=== PATIENT | male | born 1930 | race African-American/Black ===

== ENCOUNTER 2018-08-25 11:53 | Inpatient (IN) | payer MEDICARE, OTHER ==
[~2018-08-25] VITALS: Ht 188 cm; Wt 72.6 kg
[2018-08-25] MEDS ORDERED: SODIUM CHLORIDE 0.9% 1000ML BAG (SEPSIS BOLUS) IV ONE (12:15)
[2018-08-25] MEDS ORDERED: LEVOFLOXACIN 750MG PREMIX 150 ML IV ONE (12:30)
[2018-08-25 13:02] LABS: BASOPHILS % 0.7 % (0.0-2.0); EOSINOPHILS % 0.8 % (0.0-5.0); HEMATOCRIT. 46.5 % (42.0-52.0); HEMOGLOBIN. 15.6 g/dL (14.0-18.0); LYMPHOCYTES % 42.4 % (20.0-50.0); MEAN CORPUSCULAR HEMOGLOBIN 32.9 pg (28.0-32.0); MEAN CORPUSCULAR VOLUME 98.2 fL (80.0-94.0); MEAN PLATELET VOLUME 9.2 fl (7.4-10.4); MONOCYTES % 10.5 % (2.0-8.0); NEUTROPHILS % 45.6 % (40.0-76.0); PLATELET 150 x1000/uL (130-400); RED BLOOD CELL COUNT 4.74 mill/uL (4.7-6.1); RED CELL DISTRIBUTION WIDTH 14.9 % (11.6-14.6)
[2018-08-25 13:10] LABS: CHLORIDE 112 mEq/L (98-107); INR 1.6; PARTIAL THROMBOPLASTIN TIME 32.6 sec (23.4-31.0)
[2018-08-25] MEDS ORDERED: ASPIRIN 325MG EC TABLET PO ONE (14:30)
[2018-08-25 14:54] LABS: CLARITY URINE CLEAR (CLEAR); COLOR URINE YELLOW (YELLOW); KETONES URINE NEGATIVE (NEGATIVE); LEUKOCYTE ESTERASE URINE NEGATIVE (NEGATIVE); NITRITE URINE NEGATIVE (NEGATIVE); OCCULT BLOOD URINE NEGATIVE (NEGATIVE); PH URINE 5.5 (4.5-8.0); PROTEIN URINE NEGATIVE (NEGATIVE); SPECIFIC GRAVITY URINE 1.007 (1.005-1.030); UROBILINOGEN URINE 0.2 E.U./dL (0.2-1.0)
[2018-08-25] MEDS ORDERED: NA PHOS,M-B/NA PHOS,DI-BA ENEMA 118ML PR PRN (16:30)
[2018-08-25] MEDS ORDERED: GUAIFENESIN 200MG/10ML SUGAR FREE UDC PO PRN (16:30)
[2018-08-25] MEDS ORDERED: HYDROCODONE/ACETAMINOPHEN 5/325MG TABLET PO PRN (16:30)
[2018-08-25] MEDS ORDERED: ACETAMINOPHEN 650MG SUPP PR PRN (16:30)
[2018-08-25] MEDS ORDERED: DOCUSATE SODIUM 100MG CAPSULE PO PRN (16:30)
[2018-08-25] MEDS ORDERED: DEXTROSE 50% WATER 50ML SYRINGE IV PRN (16:30)
[2018-08-25] MEDS ORDERED: IPRATROPIUM/ALBUTEROL 0.5-3(2.5)MG/3ML NEB INH PRN (16:30)
[2018-08-25] MEDS ORDERED: LORAZEPAM 0.5MG TABLET PO PRN (16:30)
[2018-08-25] MEDS ORDERED: MAGNESIUM/ALUMINUM HYDROXIDE/SIMETHICONE 30ML UDC PO PRN (16:30)
[2018-08-25] MEDS ORDERED: ACETAMINOPHEN 325MG TABLET PO PRN (16:30)
[2018-08-25] MEDS ORDERED: ONDANSETRON HCL 4MG/2ML INJ IV PRN (16:30)
[2018-08-25] MEDS ORDERED: CLONIDINE 0.1MG TABLET PO PRN (16:30)
[2018-08-25] MEDS: BLOOD SUGAR DIAGNOSTIC STRIP TEST SCH ×2 (17:00→21:00)
[2018-08-25 17:50] VITALS: BP 147/85
[2018-08-25 18:29] LABS: *AMPHETAMINES SCREEN URINE NEGATIVE (NEGATIVE); *BARBITURATES SCREEN URINE NEGATIVE (NEGATIVE); *BENZODIAZEPINES SCREEN URINE NEGATIVE (NEGATIVE); *COCAINE SCREEN URINE NEGATIVE (NEGATIVE)
[2018-08-25 18:30] LABS: CANNABINOID URINE SCREEN NEGATIVE (NEGATIVE); METHADONE URINE SCREEN NEGATIVE (NEGATIVE); OPIATES URINE SCREEN NEGATIVE (NEGATIVE); PHENCYCLIDINE URINE SCREEN NEGATIVE (NEGATIVE)
[2018-08-25 20:00] VITALS: BP 124/67
[2018-08-25] MEDS: DIPHENHYDRAMINE 50MG/ML VIAL IV PRN (23:42)
[2018-08-25 23:56] VITALS: BP 124/67
[2018-08-26] VITALS: BP 157/92
[2018-08-26] MEDS ORDERED: RIVA10TA PO (00:26)
[2018-08-26] MEDS ORDERED: DILT60TA35 PO (00:26)
[2018-08-26] MEDS ORDERED: ASCO125T PO (00:26)
[2018-08-26] MEDS ORDERED: ZET10 PO (00:26)
[2018-08-26] MEDS ORDERED: ATOR40TA70 PO (00:26)
[2018-08-26] MEDS ORDERED: VIT1TABL86 PO (00:26)
[2018-08-26] MEDS ORDERED: MEMA10TA2 PO (00:26)
[2018-08-26] MEDS: ENOXAPARIN 40MG/0.4ML SYR SUBCUT SCH ×2 (00:58→08:56)
[2018-08-26 04:00] VITALS: BP 161/74
[2018-08-26 06:08] LABS: BASOPHILS % 0.4 % (0.0-2.0); EOSINOPHILS % 0.2 % (0.0-5.0); HEMATOCRIT. 41.6 % (42.0-52.0); HEMOGLOBIN. 14.1 g/dL (14.0-18.0); LYMPHOCYTES % 22.5 % (20.0-50.0); MEAN CORPUSCULAR HEMOGLOBIN 32.7 pg (28.0-32.0); MEAN CORPUSCULAR VOLUME 96.6 fL (80.0-94.0); MEAN PLATELET VOLUME 9.8 fl (7.4-10.4); NEUTROPHILS % 66.9 % (40.0-76.0); PLATELET 171 x1000/uL (130-400); RED BLOOD CELL COUNT 4.31 mill/uL (4.7-6.1); RED CELL DISTRIBUTION WIDTH 14.8 % (11.6-14.6)
[2018-08-26 06:33] LABS: CHLORIDE 110 mEq/L (98-107)
[2018-08-26 06:41] LABS: LDL CHOLESTEROL 38 mg/dL (5-100)
[2018-08-26 06:42] LABS: CREATINE KINASE 147 IU/L (39-308); HDL CHOLESTEROL 76 mg/dL (40-59); T4 FREE 1.27 ng/dL (0.76-1.46)
[2018-08-26 06:43] LABS: CREATINE KINASE MB FRACTION 1.9 ng/mL (0.5-3.6)
[2018-08-26] MEDS: BLOOD SUGAR DIAGNOSTIC STRIP TEST SCH ×4 (07:40→21:47)
[2018-08-26 08:00] VITALS: BP 141/83
[2018-08-26] MEDS: ASPIRIN 81MG EC TABLET PO SCH ×2 (08:54→08:55)
[2018-08-26 12:00] VITALS: BP 138/79
[2018-08-26] MEDS ORDERED: DILTIAZEM HCL 30MG TABLET PO SCH (14:00)
[2018-08-26] MEDS: ASCORBIC ACID 500 MG TABLET PO SCH (14:28)
[2018-08-26 16:00] VITALS: BP_SYST 120; BP_SYST 124; BP_SYST 130; BP_DIAS 69; BP_DIAS 70; BP_DIAS 84
[2018-08-26] MEDS ORDERED: MEMANTINE HCL 10MG TABLET PO SCH (17:00)
[2018-08-26 20:00] VITALS: BP_SYST 115; BP_SYST 120; BP_SYST 123; BP_DIAS 68; BP_DIAS 69; BP_DIAS 72
[2018-08-26] MEDS ORDERED: ENOXAPARIN 80MG/0.8ML SYR SUBCUT SCH (21:00)
[2018-08-26] MEDS: RIVAROXABAN 15 MG TABLET PO SCH (21:46)
[2018-08-26] MEDS: ATORVASTATIN CALCIUM 40MG TABLET PO SCH (21:46)
[2018-08-26] MEDS: METOPROLOL TARTRATE 25MG TABLET PO SCH (21:46)
[2018-08-27] VITALS: BP 105/70
[2018-08-27 04:00] VITALS: BP 153/75
[2018-08-27] MEDS: DIPHENHYDRAMINE 50MG/ML VIAL IV PRN (04:34)
[2018-08-27 08:00] VITALS: BP 143/88
[2018-08-27] MEDS: BLOOD SUGAR DIAGNOSTIC STRIP TEST SCH ×4 (08:13→20:32)
[2018-08-27] MEDS ORDERED: B6 PO SCH (09:00)
[2018-08-27] MEDS ORDERED: MEDICATION NOT ON FORMULARY EA (Ascorbic Acid (Vitamin C) 500 MG) PO SCH (09:00)
[2018-08-27] MEDS ORDERED: B2 PO SCH (09:00)
[2018-08-27] MEDS ORDERED: VIT D3 PO SCH (09:00)
[2018-08-27] MEDS ORDERED: ENOXAPARIN 40MG/0.4ML SYR SUBCUT SCH (09:00)
[2018-08-27] MEDS ORDERED: B12 PO SCH (09:00)
[2018-08-27] MEDS ORDERED: FOLIC ACID PO SCH (09:00)
[2018-08-27] MEDS: ASCORBIC ACID 500 MG TABLET PO SCH (09:35)
[2018-08-27] MEDS: EZETIMIBE 10MG TABLET PO SCH (09:36)
[2018-08-27] MEDS: ASPIRIN 81MG EC TABLET PO SCH (09:36)
[2018-08-27] MEDS: METOPROLOL TARTRATE 25MG TABLET PO SCH (09:37)
[2018-08-27] MEDS ORDERED: MEMANTINE HCL 5MG TABLET PO SCH (10:00)
[2018-08-27] MEDS: CYANOCOBALAMIN/FA/PYRIDOXINE TABLET PO SCH (11:33)
[2018-08-27 12:00] VITALS: BP_SYST 124; BP_SYST 128; BP_SYST 132; BP_SYST 134; BP_DIAS 68; BP_DIAS 73; BP_DIAS 78; BP_DIAS 79
[2018-08-27 12:34] LABS: HEMATOCRIT 44.1 % (42.0-52.0); HEMOGLOBIN 14.9 g/dL (14.0-18.0); MEAN CORPUSCULAR HEMOGLOBIN 32.8 pg (28.0-32.0); MEAN CORPUSCULAR VOLUME 96.7 fL (80.0-94.0); PLATELET 156 x1000/uL (130-400); RED BLOOD CELL COUNT 4.55 mill/uL (4.7-6.1)
[2018-08-27 12:42] LABS: CHLORIDE 107 mEq/L (98-107)
[2018-08-27 16:00] VITALS: BP 120/82
[2018-08-27] MEDS ORDERED: REGADENOSON 0.4 MG/5 ML IV ONE (16:00)
[2018-08-27] MEDS ORDERED: INSU100I19 SQ (19:27)
[2018-08-27] MEDS ORDERED: ASCO-339 PO (19:32)
[2018-08-27] MEDS ORDERED: DILT180C51 PO (19:32)
[2018-08-27] MEDS ORDERED: CHOL100022 PO (19:32)
[2018-08-27 20:00] VITALS: BP_SYST 129; BP_SYST 145; BP_SYST 146; BP_DIAS 101; BP_DIAS 67; BP_DIAS 82
[2018-08-27] MEDS: ATORVASTATIN CALCIUM 40MG TABLET PO SCH (20:28)
[2018-08-27] MEDS: RIVAROXABAN 15 MG TABLET PO SCH (20:29)
[2018-08-27 22:19] LABS: PLATELET 153 x1000/uL (130-400); RED BLOOD CELL COUNT 4.53 mill/uL (4.7-6.1); RED CELL DISTRIBUTION WIDTH 14.9 % (11.6-14.6)
[2018-08-27 22:23] LABS: CHLORIDE 104 mEq/L (98-107)
[2018-08-27 22:28] LABS: PHOSPHORUS 3.2 mg/dL (2.5-4.9)
[2018-08-27 22:31] LABS: CREATINE KINASE 226 IU/L (39-308)
[2018-08-27 22:34] LABS: CREATINE KINASE MB FRACTION 1.8 ng/mL (0.5-3.6)
[2018-08-28] MEDS ORDERED: DEXT 5%/0.45% NACL 1000ML 1,000 ML IV SCH
[2018-08-28 00:42] VITALS: BP 134/56
[2018-08-28 04:00] VITALS: BP 144/64
[2018-08-28] MEDS: BLOOD SUGAR DIAGNOSTIC STRIP TEST SCH ×2 (06:42→13:05)
[2018-08-28 06:46] LABS: HEMOGLOBIN 14.5 g/dL (14.0-18.0); MEAN CORPUSCULAR HEMOGLOBIN 33.2 pg (28.0-32.0); MEAN CORPUSCULAR VOLUME 95.9 fL (80.0-94.0); PLATELET 151 x1000/uL (130-400); RED BLOOD CELL COUNT 4.37 mill/uL (4.7-6.1); RED CELL DISTRIBUTION WIDTH 14.5 % (11.6-14.6)
[2018-08-28 07:17] LABS: CHLORIDE 106 mEq/L (98-107)
[2018-08-28 07:35] LABS: VITAMIN B12 SERUM 849 pg/mL (211-911)
[2018-08-28 08:00] VITALS: BP 132/92
[2018-08-28] MEDS: ASPIRIN 81MG EC TABLET PO SCH (09:00)
[2018-08-28] MEDS: ASCORBIC ACID 500 MG TABLET PO SCH (09:00)
[2018-08-28] MEDS: CYANOCOBALAMIN/FA/PYRIDOXINE TABLET PO SCH (09:00)
[2018-08-28] MEDS: EZETIMIBE 10MG TABLET PO SCH (09:00)
[2018-08-28] MEDS ORDERED: REGADENOSON 0.4 MG/5 ML IV ONE (09:49)
[2018-08-28 12:00] VITALS: BP 143/75
[2018-08-28 12:27] VITALS: BP 143/75
== END 2018-08-28 14:00 | disposition home or self-care (01) | DRG 73 ==
LOC: ER 12:17 → EDBEDREQ 13:41 → 7WST 14:25 → EDBEDREQ 14:29 → ENRESERV 16:30
PROVIDERS: ADMIT Internal Medicine; ATTEND Internal Medicine
DX: G90.8 Other disorders of autonomic nervous system (principal); I50.33 Acute on chronic diastolic (congestive) heart failure; D68.59 Other primary thrombophilia; E87.2 Acidosis; E46 Unspecified protein-calorie malnutrition; I47.2 Ventricular tachycardia; D68.9 Coagulation defect, unspecified; I11.0 Hypertensive heart disease with heart failure; M79.89 Other specified soft tissue disorders; I48.0 Paroxysmal atrial fibrillation; D72.819 Decreased white blood cell count, unspecified; E11.9 Type 2 diabetes mellitus without complications; F03.90 Unspecified dementia, unspecified severity, without behavioral disturbance, psychotic disturbance, mood disturbance, and anxiety; E78.5 Hyperlipidemia, unspecified; E86.0 Dehydration; R00.1 Bradycardia, unspecified; W18.30XA Fall on same level, unspecified, initial encounter; Y93.89 Activity, other specified; Y92.096 Garden or yard of other non-institutional residence as the place of occurrence of the external cause; Y99.8 Other external cause status; Z79.01 Long term (current) use of anticoagulants; Z68.20 Body mass index [BMI] 20.0-20.9, adult
CPT/HCPCS: 36415; 70486; 71045; 78452; 80048; 80061; 80305; 82550; 82553; 82607; 82962; 83036; 83605; 83735; 84100; 84145; 84153; 84439; 84443; 84484; 85027; 85379; 93005; 93017; 93306; 93970; 96365; 97161; 99291; A9500; J1200; J1650; J1956; J2785; J7030; G0103